=== PATIENT | female | born 2000 | race Caucasian/White ===

== ENCOUNTER 2024-04-09 23:04 | Inpatient (IN) | payer OTHER ==
[~2024-04-09] VITALS: Ht 167.6 cm; Wt 70.9 kg
[2024-04-10 07:04] LABS: BASOPHILS % (AUTO) 0.8 % (0.0-2.0); EOSINOPHILS % (AUTO) 2.2 % (1.0-6.0); HEMATOCRIT 41.5 % (36-46); HEMOGLOBIN 13.6 g/dL (12.0-16.0); LYMPHOCYTES # (AUTO) 1.9 K/uL (1.0-4.8); LYMPHOCYTES % (AUTO) 29.6 % (22.0-44.0); MEAN CORPUSCULAR HEMOGLOBIN 27.4 pg (26.0-34.0); MEAN CORPUSCULAR HGB CONC 32.7 G/dL (31.0-37.0); MEAN CORPUSCULAR VOLUME 84 fL (80-100); MONOCYTES # (AUTO) 0.5 K/uL (0.1-1.0); MONOCYTES % (AUTO) 8.1 % (2.0-9.0); NEUTROPHILS # (AUTO) 3.8 K/uL (1.8-7.7); NEUTROPHILS % (AUTO) 59.3 % (40.0-70.0); PLATELET COUNT (AUTO) 205 K/uL (150-450); RED BLOOD CELL COUNT(AUTO) 4.95 MIL/uL (4.00-5.20); RED CELL DISTRIBUTION WIDTH 15.7 % (11.5-14.5); WHITE BLOOD COUNT (AUTO) 6.4 K/uL (4.5-11.0)
[2024-04-10 07:13] LABS: ANION GAP 8 mmol/L (8-16); CALCIUM, TOTAL 8.6 mg/dL (8.8-10.5); CARBON DIOXIDE 27 mmol/L (22-29); CHLORIDE 102 mmol/L (98-107); CREATININE 0.51 mg/dL (0.60-1.30); GLOMERULAR FILTR. RATE CALC > 60 mL/min (>60); GLUCOSE,RANDOM 91 mg/dL (70-110); POTASSIUM 3.8 mmol/L (3.5-5.1); SODIUM SERUM 137 mmol/L (136-145); UREA NITROGEN, BLOOD 9 mg/dL (7-18)
[2024-04-10] MEDS ORDERED: LOPERAMIDE HCL 2 MG CAPSULE PO PRN (07:15)
[2024-04-10] MEDS ORDERED: DICYCLOMINE HCL 10 MG CAPSULE PO PRN (07:15)
[2024-04-10 10:45] VITALS: BP 117/70; PULSE 68; RESP 19; TEMP 97.3
[2024-04-10] MEDS: LORazepam 2 MG/ML VIAL IVP PRN (11:04)
[2024-04-10] MEDS: METOCLOPRAMIDE HCL 5 MG/ML 2 ML VIAL IVP PRN (11:04)
[2024-04-10 15:16] VITALS: BP 111/66; PULSE 88; RESP 19; TEMP 98; O2SAT 100
[2024-04-10 20:18] VITALS: BP 124/61; PULSE 61; RESP 18; TEMP 98.5; O2SAT 96
[2024-04-10] MEDS: TEMAZEPAM 15 MG CAPSULE PO SCH (20:21)
[2024-04-10 23:55] VITALS: BP 115/65; PULSE 65; RESP 18; TEMP 97.6; O2SAT 95
[2024-04-11 04:14] VITALS: BP 116/78; PULSE 66; RESP 18; TEMP 97.5; O2SAT 98
[2024-04-11 09:58] VITALS: BP 118/75; PULSE 74; RESP 19; TEMP 98.3; O2SAT 99
[2024-04-11 10:46] LABS: PH,URINE DRUG SCREEN 6.5 (5.0-8.0)
[2024-04-11 13:32] LABS: ALCOHOL, URINE DRUG SCREEN NEGATIVE (NEGATIVE); AMPHET/METH SCREEN,URINE NEGATIVE (NEGATIVE); BARBITURATE SCREEN, URINE NEGATIVE (NEGATIVE); BENZODIAZEPINES SCREEN,URINE NEGATIVE (NEGATIVE); CANNABINOID SCREEN,URINE NEGATIVE (NEGATIVE); COCAINE SCREEN,URINE NEGATIVE (NEGATIVE); METHADONE SCREEN, URINE NEGATIVE (NEGATIVE); OPIATE SCREEN,URINE NEGATIVE (NEGATIVE); PHENCYCLIDINE SCREEN,URINE NEGATIVE (NEGATIVE)
[2024-04-11] MEDS: ACETAMINOPHEN 325 MG TABLET PO PRN (16:35)
[2024-04-12 04:59] VITALS: BP 124/66; PULSE 69; RESP 18; TEMP 98.4; O2SAT 96
[2024-04-12 08:30] VITALS: BP 120/70; PULSE 89; RESP 16; TEMP 98; O2SAT 100
== END 2024-04-12 17:30 | DRG 948 ==
LOC: EMS 23:04 → EDH 04-10 07:03 → 6S 04-10 10:30
PROVIDERS: ADMIT Internal Medicine; ATTEND Internal Medicine
DX: R53.1 Weakness (principal); F15.90 Other stimulant use, unspecified, uncomplicated; F41.9 Anxiety disorder, unspecified; F19.10 Other psychoactive substance abuse, uncomplicated; R11.0 Nausea
CPT/HCPCS: 80048; 80307; 84703; 85025; 99285; J2060; J2765